=== PATIENT | male | born 1980 | race Caucasian/White ===

== ENCOUNTER 2017-05-07 16:10 | Emergency (ER) | payer BC ==
[~2017-05-07] VITALS: Ht 180.3 cm; Wt 70.0 kg
[2017-05-07 17:20] VITALS: BP 133/78
[2017-05-07] MEDS ORDERED: AMOXICILLIN500 MG PO (17:27)
[2017-05-07] MEDS ORDERED: ULTRAM50 M1 PO (17:27)
== END 2017-05-07 17:44 | disposition home or self-care (01) | DRG 914 ==
LOC: ED 16:10
DX: S31.141A Puncture wound of abdominal wall with foreign body, left upper quadrant without penetration into peritoneal cavity, initial encounter (principal); W20.8XXA Other cause of strike by thrown, projected or falling object, initial encounter; Y93.89 Activity, other specified

== ENCOUNTER 2017-06-30 11:57 | Emergency (ER) | payer BC ==
[~2017-06-30] VITALS: Ht 180.3 cm; Wt 63.4 kg
[~2017-06-30 11:57] MED LIST: AMOXICILLIN500 MG PO; ULTRAM50 M1 PO
[2017-06-30 14:42] LABS: HEMATOCRIT 44.2 % (39.0-50.0); HEMOGLOBIN 15.5 g/dl (14.0-18.0); IMMATURE GRANULOCYTES 0.3 % (0.0-1.0); MEAN CORPUSCULAR HGB CONC 35.1 g/L CALC (32.0-36.0); NEUT# 5.61 thou/uL (1.82-7.42); RED BLOOD COUNT 4.7 mill/uL (4.70-6.10); RED CELL DISTRI WIDTH 12.1 % (11.5-15.5)
[2017-06-30 15:00] LABS: ALKALINE PHOSPHATASE 65 u/l (38-126); ANION GAP 13 (6-22 (CALC)); BILIRUBIN, TOTAL 0.6 mg/dL (0.0-1.4); BUN 11 mg/dL (9-20); BUN/CREATININE RATIO 12 (12-20 (CALC)); CALCIUM 9.2 mg/dL (8.4-10.2); CARBON DIOXIDE 29 mmol/l (22-30); CHLORIDE 102 mmol/l (95-108); CREATININE 0.9 mg/dL (0.7-1.3); GFR > 60 ML/MIN (>=60 (CALC)); GFR FOR AFR.AMER. > 60 ML/MIN (>=60 (CALC)); GLUCOSE 64 mg/dL (75-110); POTASSIUM 4.3 mmol/l (3.5-5.1); SGOT/AST 19 u/l (17-59); SGPT/ALT 27 u/l (21-72); SODIUM 140 mmol/l (137-146); TOTAL PROTEIN 6.6 g/dL (6.3-8.2)
[2017-06-30] MEDS ORDERED: AMOXICILLIN500 MG PO (15:05)
[2017-06-30] MEDS ORDERED: ULTRAM50 M1 PO (15:05)
[2017-06-30 15:10] VITALS: BP 119/78
== END 2017-06-30 15:10 | disposition home or self-care (01) | DRG 603 ==
LOC: ED 11:57
PROVIDERS: Emergency Medicine
DX: L03.113 Cellulitis of right upper limb (principal); F17.200 Nicotine dependence, unspecified, uncomplicated

== ENCOUNTER 2017-09-19 03:33 | Emergency (ER) | payer BC ==
[~2017-09-19] VITALS: Ht 180.3 cm; Wt 70.5 kg
[2017-09-19 04:06] LABS: HEMATOCRIT 40.9 % (39.0-50.0); HEMOGLOBIN 14.5 g/dl (14.0-18.0); IMMATURE GRANULOCYTES 0.3 % (0.0-1.0); MEAN CELL VOLUME 91.5 fL CALC (80.0-100.0); MEAN CORPUSCULAR HGB 32.4 pG CALC (26.0-32.0); MEAN CORPUSCULAR HGB CONC 35.5 g/L CALC (32.0-36.0); NEUT# 4.13 thou/uL (1.82-7.42); RED BLOOD COUNT 4.47 mill/uL (4.70-6.10)
[2017-09-19 04:14] LABS: ALBUMIN 4.3 g/dL (3.2-5.0); ALKALINE PHOSPHATASE 66 u/l (38-126); ANION GAP 15 (6-22 (CALC)); BILIRUBIN, TOTAL 0.5 mg/dL (0.0-1.4); BUN 10 mg/dL (9-20); BUN/CREATININE RATIO 9 (12-20 (CALC)); CALCIUM 9.2 mg/dL (8.4-10.2); CARBON DIOXIDE 29 mmol/l (22-30); CHLORIDE 108 mmol/l (95-108); GFR > 60 ML/MIN (>=60 (CALC)); GFR FOR AFR.AMER. > 60 ML/MIN (>=60 (CALC)); GLUCOSE 104 mg/dL (75-110); POTASSIUM 4.7 mmol/l (3.5-5.1); SGOT/AST 34 u/l (17-59); SGPT/ALT 34 u/l (21-72); SODIUM 147 mmol/l (137-146)
[2017-09-19 04:18] LABS: URINE BILIRUBIN - DIPSTICK NEGATIVE (NEGATIVE); URINE BLOOD DIPSTICK NEGATIVE (NEGATIVE); URINE CLARITY CLEAR; URINE COLOR YELLOW; URINE GLUCOSE - DIPSTICK NEGATIVE (NEGATIVE); URINE KETONE NEGATIVE (NEGATIVE); URINE LEUK ESTERASE NEGATIVE (NEGATIVE); URINE NITRITE - DIPSTICK NEGATIVE (Negative); URINE PROTEIN - DIPSTICK NEGATIVE (NEG-TRACE); URINE SPECIFIC GRAVITY <=1.005; URINE UROBILINOGEN - DIPSTICK 0.2 E.U./dL (0.2)
[2017-09-19 04:21] LABS: BARBITURATES NEGATIVE (NEGATIVE); COCAINE NEGATIVE (NEGATIVE); METHADONE NEGATIVE (NEGATIVE); OXCYCODONE NEGATIVE (NEGATIVE); TETRAHYDROCANNABIONOL NEGATIVE (NEGATIVE); TRICYLIC ANTIDEPRESSANTS NEGATIVE (NEGATIVE)
[2017-09-19 04:47] LABS: MYOGLOBIN 428 ng/mL (0 - 121)
[2017-09-19 09:35] VITALS: BP 119/74
== END 2017-09-19 09:35 | DRG 951 ==
LOC: ED 03:33
PROVIDERS: Emergency Medicine
DX: R46.89 Other symptoms and signs involving appearance and behavior (principal); R07.9 Chest pain, unspecified; R51 Headache; S20.319A Abrasion of unspecified front wall of thorax, initial encounter; S30.811A Abrasion of abdominal wall, initial encounter; X58.XXXA Exposure to other specified factors, initial encounter; Y92.828 Other wilderness area as the place of occurrence of the external cause

== ENCOUNTER 2018-01-02 05:17 | Emergency (ER) | payer BC ==
[~2018-01-02] VITALS: Ht 175.3 cm; Wt 67.4 kg
[2018-01-02] MEDS ORDERED: KEFLEX500 MG PO (05:38)
[2018-01-02 06:00] VITALS: BP 132/80
== END 2018-01-02 06:01 | disposition home or self-care (01) | DRG 607 ==
LOC: ED 05:17
DX: S20.362A Insect bite (nonvenomous) of left front wall of thorax, initial encounter (principal); L08.9 Local infection of the skin and subcutaneous tissue, unspecified; S00.86XA Insect bite (nonvenomous) of other part of head, initial encounter; W57.XXXA Bitten or stung by nonvenomous insect and other nonvenomous arthropods, initial encounter; Y92.009 Unspecified place in unspecified non-institutional (private) residence as the place of occurrence of the external cause

== ENCOUNTER 2019-05-07 03:29 | Emergency (ER) | payer BC ==
[~2019-05-07] VITALS: Ht 172.7 cm; Wt 68.1 kg
[~2019-05-07 03:29] MED LIST changes: +KEFLEX500 MG PO
[2019-05-07 04:47] LABS: HEMATOCRIT 43.5 % (39.0-50.0); IMMATURE GRANULOCYTES 0.4 % (0.0-5.0); MEAN CELL VOLUME 91.6 fL CALC (80.0-100.0); MEAN CORPUSCULAR HGB 31.6 pG CALC (26.0-32.0); MEAN CORPUSCULAR HGB CONC 34.5 g/L CALC (32.0-36.0); RED BLOOD COUNT 4.75 mill/uL (4.70-6.10); RED CELL DISTRI WIDTH 12.2 % (11.5-15.5)
[2019-05-07 04:57] LABS: ALBUMIN 4.5 g/dL (3.2-5.0); ALKALINE PHOSPHATASE 60 u/l (38-126); AMYLASE 69 u/l (30-110); ANION GAP 15 (6-22 (CALC)); BILIRUBIN, TOTAL 0.6 mg/dL (0.0-1.4); BUN 14 mg/dL (9-20); BUN/CREATININE RATIO 19 (12-20 (CALC)); CARBON DIOXIDE 27 mmol/l (22-30); CHLORIDE 102 mmol/l (95-108); CREATININE 0.7 mg/dL (0.7-1.3); GFR > 60 ML/MIN (>=60 (CALC)); GFR FOR AFR.AMER. > 60 ML/MIN (>=60 (CALC)); LIPASE 188 u/l (23-300); POTASSIUM 4.1 mmol/l (3.5-5.1); SGOT/AST 39 u/l (17-59); SODIUM 140 mmol/l (137-146); TOTAL PROTEIN 7.4 g/dL (6.3-8.2)
[2019-05-07 06:25] LABS: URINE BILIRUBIN - DIPSTICK NEGATIVE (NEGATIVE); URINE BLOOD DIPSTICK NEGATIVE (NEGATIVE); URINE COLOR YELLOW; URINE GLUCOSE - DIPSTICK NEGATIVE (NEGATIVE); URINE KETONE NEGATIVE (NEGATIVE); URINE LEUK ESTERASE NEGATIVE (NEGATIVE); URINE NITRITE - DIPSTICK NEGATIVE (Negative); URINE PH 6.5 (4.5-8.0); URINE PROTEIN - DIPSTICK NEGATIVE (NEG-TRACE); URINE UROBILINOGEN - DIPSTICK 0.2 E.U./dL (0.2)
[2019-05-07] MEDS ORDERED: PROTONIX40 M2 PO (08:20)
[2019-05-07 08:50] VITALS: BP 158/102
== END 2019-05-07 09:00 | disposition home or self-care (01) | DRG 392 ==
LOC: ED 03:29
PROVIDERS: Emergency Medicine
DX: R10.12 Left upper quadrant pain (principal); R10.13 Epigastric pain; R10.33 Periumbilical pain; D69.6 Thrombocytopenia, unspecified; F17.210 Nicotine dependence, cigarettes, uncomplicated

== ENCOUNTER 2019-07-10 15:49 | Emergency (ER) | payer BC ==
[~2019-07-10] VITALS: Ht 172.7 cm; Wt 68.2 kg
[~2019-07-10 15:49] MED LIST changes: +PROTONIX40 M2 PO
[2019-07-10] MEDS ORDERED: DOXYCYCL HYC100 MG PO (17:34)
[2019-07-10] MEDS ORDERED: VOLTAREN - GENE75 MG PO (17:36)
[2019-07-10 17:38] VITALS: BP 119/95
== END 2019-07-10 17:42 | disposition home or self-care (01) | DRG 605 ==
LOC: ED 15:49
PROC: 0HQFXZZ Repair Right Hand Skin, External Approach (ICD-10-PCS; principal; 2019-07-10)
DX: S61.211A Laceration without foreign body of left index finger without damage to nail, initial encounter (principal); S61.212A Laceration without foreign body of right middle finger without damage to nail, initial encounter; F17.200 Nicotine dependence, unspecified, uncomplicated; W31.1XXA Contact with metalworking machines, initial encounter

== ENCOUNTER 2019-10-07 08:08 | Emergency (ER) | payer BC ==
[~2019-10-07] VITALS: Ht 172.7 cm; Wt 67.0 kg
[~2019-10-07 08:08] MED LIST changes: +DOXYCYCL HYC100 MG PO; +VOLTAREN - GENE75 MG PO
[2019-10-07 10:56] LABS: HEMATOCRIT 43.5 % (39.0-50.0); HEMOGLOBIN 14.9 g/dl (14.0-18.0); MEAN CELL VOLUME 90.8 fL CALC (80.0-100.0); MEAN CORPUSCULAR HGB 31.1 pG CALC (26.0-32.0); MEAN CORPUSCULAR HGB CONC 34.3 g/L CALC (32.0-36.0); NEUT# 14.01 thou/uL (1.82-7.42); RED BLOOD COUNT 4.79 mill/uL (4.70-6.10); RED CELL DISTRI WIDTH 11.9 % (11.5-15.5)
[2019-10-07 11:06] LABS: ALBUMIN 3.8 g/dL (3.2-5.0); ANION GAP 13 (6-22 (CALC)); BILIRUBIN, TOTAL 0.4 mg/dL (0.0-1.4); BUN 21 mg/dL (9-20); BUN/CREATININE RATIO 22 (12-20 (CALC)); CARBON DIOXIDE 30 mmol/l (22-30); CHLORIDE 98 mmol/l (95-108); GFR > 60 ML/MIN (>=60 (CALC)); GFR FOR AFR.AMER. > 60 ML/MIN (>=60 (CALC)); POTASSIUM 4.1 mmol/l (3.5-5.1); SGOT/AST 32 u/l (17-59); SODIUM 137 mmol/l (137-146); TOTAL PROTEIN 7.1 g/dL (6.3-8.2)
[2019-10-07 11:09] LABS: ALKALINE PHOSPHATASE 95 u/l (38-126)
[2019-10-07] MEDS ORDERED: AMOX/K CLAV875 M1 PO (11:43)
[2019-10-07] MEDS ORDERED: VENTOLIN HFA IN (11:43)
[2019-10-07] MEDS ORDERED: MEDDOSEPAK PO (11:43)
[2019-10-07] MEDS ORDERED: ZITHROMAX500 MG PO (11:43)
[2019-10-07 11:50] VITALS: BP 116/74
== END 2019-10-07 11:50 | disposition home or self-care (01) | DRG 195 ==
LOC: ED 08:08
PROVIDERS: Family Medicine
DX: J18.9 Pneumonia, unspecified organism (principal); F17.210 Nicotine dependence, cigarettes, uncomplicated

== ENCOUNTER 2021-05-13 13:41 | Emergency (ER) | payer MEDICAID ==
[~2021-05-13] VITALS: Ht 172.7 cm; Wt 72.0 kg
[~2021-05-13 13:41] MED LIST changes: +AMOX/K CLAV875 M1 PO; +MEDDOSEPAK PO; +VENTOLIN HFA IN; +ZITHROMAX500 MG PO
[2021-05-13] MEDS ORDERED: IBUPROFEN600 MG PO ×2 (15:41→15:56)
[2021-05-13] MEDS ORDERED: KEFLEX500 MG PO ×2 (15:41→15:56)
[2021-05-13 15:51] VITALS: BP 138/94
== END 2021-05-13 16:01 | disposition home or self-care (01) | DRG 605 ==
LOC: ED 13:41
PROC: 0HQDXZZ Repair Right Lower Arm Skin, External Approach (ICD-10-PCS; principal; 2021-05-13)
DX: S61.511A Laceration without foreign body of right wrist, initial encounter (principal); F17.210 Nicotine dependence, cigarettes, uncomplicated; W45.0XXA Nail entering through skin, initial encounter; Y93.89 Activity, other specified

== ENCOUNTER 2022-05-08 21:05 | Emergency (ER) | payer MEDICAID ==
[~2022-05-08] VITALS: Ht 172.7 cm; Wt 66.0 kg
[~2022-05-08 21:05] MED LIST changes: +IBUPROFEN600 MG PO
[2022-05-08 21:15] VITALS: BP 145/98
[2022-05-08 21:20] VITALS: BP 145/98
[2022-05-08] MEDS ORDERED: TRAMADOL HCL50 MG PO (21:25)
[2022-05-08] MEDS ORDERED: AMOXICILLIN500 MG PO (21:25)
[2022-05-08] MEDS ORDERED: VOLTAREN75 MG PO (21:25)
== END 2022-05-08 21:35 | disposition home or self-care (01) ==
LOC: ED 21:05
DX: K02.9 Dental caries, unspecified (principal); F17.200 Nicotine dependence, unspecified, uncomplicated

== ENCOUNTER 2022-07-22 09:51 | Emergency (ER) | payer MEDICAID ==
[~2022-07-22] VITALS: Ht 172.7 cm; Wt 65.7 kg
[~2022-07-22 09:51] MED LIST changes: +TRAMADOL HCL50 MG PO; +VOLTAREN75 MG PO
[2022-07-22 09:57] VITALS: BP 127/95
[2022-07-22 10:00] VITALS: BP 132/97
[2022-07-22] MEDS ORDERED: AMOXICILLIN500 M2 PO (10:16)
[2022-07-22] MEDS ORDERED: TRAMADOL HYDROC50 M1 PO (10:16)
[2022-07-22 10:30] VITALS: BP 125/91
[2022-07-22 10:34] VITALS: BP 121/89
== END 2022-07-22 10:35 | disposition home or self-care (01) ==
LOC: ED 09:51
DX: K03.81 Cracked tooth (principal); F17.210 Nicotine dependence, cigarettes, uncomplicated

== ENCOUNTER 2023-04-23 21:58 | Emergency (ER) | payer OTHER, MEDICAID ==
[~2023-04-23] VITALS: Ht 172.7 cm; Wt 65.0 kg
[~2023-04-23 21:58] MED LIST changes: +AMOXICILLIN500 M2 PO; +TRAMADOL HYDROC50 M1 PO
[2023-04-23] MEDS ORDERED: GENTAMICIN0.3 % OU (22:40)
[2023-04-23 22:50] VITALS: BP 138/82
== END 2023-04-23 22:59 | disposition home or self-care (01) | DRG 125 ==
LOC: ED 21:58
DX: H10.9 Unspecified conjunctivitis (principal); F17.210 Nicotine dependence, cigarettes, uncomplicated